=== PATIENT | male | born 1990 | race American Indian/Alaskan Native ===

== ENCOUNTER 2018-10-12 10:34 | Emergency (ER) | payer MEDICAID ==
--- NOTE | 2018-10-12 11:17 | ED PDOC ---
Arrival/HPI - General Historian: Patient, Parent - History of Present Illness Narrative History of Present Illness (Text): 10/12/18 11:13 Pt is a 28 yo male with no significant PMH who presents to the ED complaining of rash. Pt states the rash began about 1 week ago, but worsened yesterday so much that he was unable to sleep due to the itchiness. Pt states the rash is currently on his right upper arm , but will come and go, and has been on his legs, back and stomach. Denies trouble breathing. Denies allergy to dogs, cats. Has not changed detergent and is not wearing any new clothing. Pt states he has been using a new martinez butter soap. Time/Duration: 1 week Symptom Onset: Gradual Symptom Course: Worsening Quality: Other (itchy) Severity Level: 7 Activities at Onset: Rest Context: Sitting <Hola Ivory - Last Filed: 10/12/18 13:07> <Delfin Loya - Last Filed: 10/12/18 14:02> - General Chief Complaint: Abnormal Skin Integrity Past Medical History - Infectious Disease Hx of Infectious Diseases: None - Psychiatric Hx Substance Use: No - Anesthesia Hx Anesthesia: No Hx Anesthesia Reactions: No Hx Malignant Hyperthermia: No <Hola Ivory - Last Filed: 10/12/18 13:07> Family/Social History Family/Social History: No Known Family HX Smoking Status: Never Smoked Hx Alcohol Use: No Hx Substance Use: No <Hola Ivory - Last Filed: 10/12/18 13:07> Allergies/Home Meds <Hola Ivory - Last Filed: 10/12/18 13:07> <Delfin Loya - Last Filed: 10/12/18 14:02> Allergies/Adverse Reactions: Allergies chloroquine Allergy (Intermediate, Verified 10/12/18 10:54) RASH Quinolones Allergy (Intermediate, Verified 10/12/18 10:58) RASHES PT REPORTED ALL QUINOLONE DERIVATIVES Home Medications: Home Meds Medication Instructions Recorded Confirmed No Known Home Med 10/12/18 10/12/18 Review of Systems - Review of Systems Constitutional: Normal Eyes: Normal ENT: Normal Respiratory: Normal Cardiovascular: Normal Gastrointestinal: Normal Musculoskeletal: Normal Skin: Rash Neurological: Normal Endocrine: Normal Hemo/Lymphatic: Normal Psychiatric: Normal <Hola Ivory - Last Filed: 10/12/18 13:07> Physical Exam Vital Signs Reviewed: Yes Vital Signs Temp Pulse Resp BP Pulse Ox 10/12/18 10:49 98.3 F 81 18 133/78 99 Temperature: Afebrile Blood Pressure: Normal Pulse: Regular Respiratory Rate: Normal Appearance: Positive for: Well-Appearing Mental Status: Positive for: Alert and Oriented X 3 - Systems Exam Head: Present: Atraumatic, Normocephalic Pupils: Present: PERRL Extroacular Muscles: Present: EOMI Conjunctiva: Present: Normal Mouth: Present: Moist Mucous Membranes Neck: Present: Normal Range of Motion Respiratory/Chest: Present: Clear to Auscultation, Good Air Exchange Cardiovascular: Present: Regular Rate and Rhythm, Normal S1, S2 Upper Extremity: Present: Normal ROM, Other (rash RUE) Lower Extremity: Present: Normal Inspection Neurological: Present: GCS=15, CN II-XII Intact Skin: Present: Rashes Psychiatric: Present: Alert, Oriented x 3 <Hola Ivory - Last Filed: 10/12/18 13:07> Vital Signs Temp Pulse Resp BP Pulse Ox 10/12/18 13:11 98.2 F 73 16 137/73 100 10/12/18 10:49 98.3 F 81 18 133/78 99 <Delfin Loya - Last Filed: 10/12/18 14:02> Medical Decision Making ED Course and Treatment: 10/12/18 11:20 IVP Benadryl 50 IVP Pepcid 20 IVP Solu medrol 125 10/12/18 13:06 pt has improve, rash has almost resolved discharge pt Pt seen, examined, assessment and plan discussed with Dr Vincenzo Ivory PGY1 <Hola Ivory - Last Filed: 10/12/18 13:07> ED Course and Treatment: Seen and examined with resident. 28 y/o M p/w rash. On exam, nontender, blanching, erythematous rash with history of new soap. - Medication Orders Current Medication Orders: Discontinued Medications Diphenhydramine HCl (Benadryl) 50 mg IVP STAT STA Stop: 10/12/18 11:32 Last Admin: 10/12/18 11:44 Dose: 50 mg IVP Administration Document 10/12/18 11:44 RC (Rec: 10/12/18 11:44 [id number] Charges for Administration # of IVP Administrations 1 Famotidine (Pepcid) 20 mg IVP STAT STA Stop: 10/12/18 11:32 Last Admin: 10/12/18 11:43 Dose: 20 mg IVP Administration Document 10/12/18 11:43 RC (Rec: 10/12/18 11:44 [id number] Charges for Administration # of IVP Administrations 1 Sodium Chloride (Sodium Chloride 0.9%) 1,000 mls @ 999 mls/hr IV .Q1H1M STA Stop: 10/12/18 12:57 Last Admin: 10/12/18 12:03 Dose: 999 mls/hr eMAR Start Stop Document 10/12/18 12:03 RC (Rec: 10/12/18 12:04 [id number] Intravenous Solution Start Date 10/12/18 Start Time 12:04 End Date 10/12/18 End time 13:04 Total Infusion Time 60 Methylprednisolone (Solu-Medrol) 125 mg IVP STAT STA Stop: 10/12/18 11:32 Last Admin: 10/12/18 11:43 Dose: 125 mg IVP Administration Document 10/12/18 11:43 RC (Rec: 10/12/18 11:43 [id number] Charges for Administration # of IVP Administrations 1 <Delfin Loya - Last Filed: 10/12/18 14:02> - PA / [employer] MACHINE OPERATOR / Resident Statement VINCE has reviewed & agrees with the documentation as recorded. VINCE has examined the patient and agrees with the treatment plan. <Hola Ivory - Last Filed: 10/12/18 13:07> Disposition/Present on Arrival - Present on Arrival Any Indicators Present on Arrival: No History of DVT/PE: No History of Uncontrolled Diabetes: No Urinary Catheter: No History of Decub. Ulcer: No History Surgical Site Infection Following: None - Disposition Have Diagnosis and Disposition been Completed?: Yes Disposition Time: 13:07 Patient Plan: Discharge <Hola Ivory - Last Filed: 10/12/18 13:07> <Delfin Loya - Last Filed: 10/12/18 14:02> - Disposition Diagnosis: Contact dermatitis Disposition: HOME/ ROUTINE Condition: GOOD Discharge Instructions (ExitCare): Contact Dermatitis (DC) Forms: [employer] ([place])
[2018-10-12] MEDS ORDERED: DiphenhydrAMINE 12.5 mg/5 ml LIQ UD (5 ml) PO STA (11:28)
[2018-10-12] MEDS ORDERED: DiphenhydrAMINE 50 mg/ml Inj IVP STA (11:31)
[2018-10-12] MEDS ORDERED: Sodium Chloride 0.9% 1,000 ML IV STA (11:57)
[2018-10-12 13:12] VITALS: BP 137/73; PULSE 73; RESP 16; TEMP 98.2; O2SAT 100
== END 2018-10-12 13:11 | disposition home or self-care (01) ==
LOC: ED 10:34
DX: L25.9 Unspecified contact dermatitis, unspecified cause (principal)
CPT/HCPCS: 96361; 96374; 96375; 99282; J1200; J2930; J7030

== ENCOUNTER 2018-10-17 19:22 | Emergency (ER) | payer MEDICAID ==
[2018-10-17 20:11] VITALS: BMI 21.2
[2018-10-17 20:17] VITALS: BP 127/81; PULSE 89; RESP 18; TEMP 98.3; O2SAT 99
--- NOTE | 2018-10-17 20:33 | ED PDOC ---
Arrival/HPI - General Chief Complaint: Allergic Reaction Time Seen by Provider: 10/17/18 19:26 Historian: Patient - History of Present Illness Narrative History of Present Illness (Text): 10/17/18 21:28 28 yo M w/ no significant PMH presents complaining of itchy red raised rash to his whole body, which erupts almost on a daily basis mostly occurring in the late afternoon and evening, with no alleviating or exacerbating factors. Patient states that he was seen here recently for similar symptoms and was given IV medications which improved his rash that day however the rash returned the next day. He states that he has tried [id number] Benadryl, Claritin and hydrocortisone with minimal relief. He states that he has had this rash in the past in his early 20s, states that he has seen a doctor in the past and has had blood work and was always told that everything was normal. Of note, patient states that when he gets stressed out, sometimes the rash erupts. Otherwise he reports no fever, URI, facial/throat swelling, shortness of breath, taking any new food, changes in soaps/lotions or his daily regimen. PMD Atoot Past Medical History - Infectious Disease Hx of Infectious Diseases: None - Psychiatric Hx Substance Use: No - Anesthesia Hx Anesthesia: No Hx Anesthesia Reactions: No Hx Malignant Hyperthermia: No Family/Social History Family/Social History: No Known Family HX Smoking Status: Never Smoked Hx Alcohol Use: No Hx Substance Use: No Allergies/Home Meds Allergies/Adverse Reactions: Allergies chloroquine Allergy (Intermediate, Verified 10/12/18 10:54) RASH Quinolones Allergy (Intermediate, Verified 10/12/18 10:58) RASHES PT REPORTED ALL QUINOLONE DERIVATIVES Review of Systems - Review of Systems Constitutional: absent: Fatigue, Fevers ENT: absent: Sore Throat, Rhinorrhea, Sinus Congestion Respiratory: absent: SOB, Cough Cardiovascular: absent: Chest Pain, Palpitations Gastrointestinal: absent: Abdominal Pain, Nausea, Vomiting Musculoskeletal: absent: Arthralgias, Back Pain, Neck Pain Skin: Rash. absent: Pruritis, Skin Lesions Neurological: absent: Headache, Dizziness Physical Exam Vital Signs Temp Pulse Resp BP Pulse Ox 10/17/18 20:11 98.3 F 89 18 127/81 99 Temperature: Afebrile Blood Pressure: Normal Pulse: Regular Respiratory Rate: Normal Appearance: Positive for: Well-Appearing, Non-Toxic, Comfortable Pain Distress: None Mental Status: Positive for: Alert and Oriented X 3 - Systems Exam Head: Present: Atraumatic, Normocephalic Pupils: Present: PERRL Extroacular Muscles: Present: EOMI Conjunctiva: Present: Normal Ears: Present: Normal, NORMAL TM Mouth: Present: Moist Mucous Membranes Pharnyx: Present: Normal. No: ERYTHEMA, EXUDATE Neck: Present: Normal Range of Motion. No: Meningeal Signs, Lymphadenopathy Respiratory/Chest: Present: Clear to Auscultation, Good Air Exchange. No: Respiratory Distress, Accessory Muscle Use Cardiovascular: Present: Regular Rate and Rhythm, Normal S1, S2. No: Murmurs Abdomen: No: Tenderness, Distention, Peritoneal Signs Back: Present: Normal Inspection Upper Extremity: Present: Normal Inspection. No: Cyanosis, Edema Lower Extremity: Present: Normal Inspection. No: Edema Neurological: Present: GCS=15, CN II-XII Intact, Speech Normal Skin: Present: Warm, Dry, Rashes (+rash to the R medial arm), Normal Color Psychiatric: Present: Alert, Oriented x 3, Normal Insight, Normal Concentration Medical Decision Making ED Course and Treatment: 10/17/18 21:31 Patient advised that the rash could be hives or eczema. Otherwise advised to follow up with etl manager for further evaluation, referral provided. - PA / TECHNICAL BUSINESS SYSTEMS ANALYST / Resident Statement / has reviewed & agrees with the documentation as recorded. Disposition/Present on Arrival - Present on Arrival Any Indicators Present on Arrival: No History of DVT/PE: No History of Uncontrolled Diabetes: No Urinary Catheter: No History of Decub. Ulcer: No History Surgical Site Infection Following: None - Disposition Have Diagnosis and Disposition been Completed?: Yes Diagnosis: Rash Disposition: HOME/ ROUTINE Disposition Time: 20:30 Patient Plan: Discharge Patient Problems: Current Active Problems Problem Status Onset Rash Acute Condition: STABLE Discharge Instructions (ExitCare): Skin Rash (DC) Additional Instructions: Thank you for letting us take care of you today. You were treated for rash, possible hives vs eczema. The emergency medical care you received today was directed at your acute symptoms. If you were prescribed any medication, please fill it and take as directed. It may take several days for your symptoms to resolve. Return to the Emergency Department if your symptoms worsen, do not improve, or if you have any other problems. Please contact your doctor in 2 days for re-evaluation and follow up / or call one of the physicians/clinics you have been referred to that are listed on the Patient Visit Information form that is included in your discharge packet. Bring any paperwork you were given at discharge with you along with any medications you are taking to your follow up visit. Our treatment cannot replace ongoing medical care by a primary care provider (PCP) outside of the emergency department. Thank you for allowing the [facility] team to be part of your care today. Prescriptions: Cetirizine HCl [Zyrtec] 10 mg PO DAILY #30 capsule Hydrocortisone Yanelis 0.2% Cr [Westcort] 1 ea TP BID #30 tube Referrals: Dayana Yoo MD [Staff Provider] - Follow up with primary Forms: [employer] ([place])
== END 2018-10-17 20:11 | disposition home or self-care (01) ==
LOC: ED 19:22
DX: R21 Rash and other nonspecific skin eruption (principal)